=== PATIENT | female | born 1960 | race Caucasian/White ===

== ENCOUNTER 2017-04-22 07:30 | Inpatient (IN) ==
[2017-04-21 11:46] LABS: Basophils # (Auto) 0 K/mcL (0.0-0.3); Basophils % (Auto) 0.6 % (0.0-2.0); Eosinophils # (Auto) 0.2 K/mcL (0.0-0.7); Eosinophils % (Auto) 5.2 % (0.0-7.0); Lymphocytes # (Auto) 1.8 K/mcL (1.5-4.8); Lymphocytes % (Auto) 40.3 % (15.5-49.0); Mean Cell Volume 83.1 fL (80.0-100.0); Mean Corpuscular HGB Conc 34.3 g/dL (31.0-36.0); Mean Corpuscular Hemoglobin 28.5 pg (26.0-34.0); Monocytes # (Auto) 0.3 K/mcL (0.1-0.9); Monocytes % (Auto) 5.9 % (1.0-12.0); Platelet Count 181 K/mcL (140-440); RBC 4.58 M/mcL (4.00-5.20); Red Cell Distribution Width 13.7 % (11.5-14.5)
[2017-04-21 11:59] LABS: Blood Urea Nitrogen 15 mg/dl (6-20)
[2017-04-21 12:07] LABS: Appearance,Urine CLEAR; Bilirubin,Urine NEG (NEG); Color,Urine STRAW; Glucose,Urine (UA) NEGATIVE (NEG); Leukocyte Esterase,Urine NEG /uL (NEG); Nitrate,Urine NEG (NEG); Protein,Urine NEG (NEG); Urine Blood NEG mg/dL (<0.03); Urobilinogen,Urine NEG (NEG)
[~2017-04-22 07:30] MED LIST: CELECOXIB 200 MG CAPSULE PO SCH; PREGABALIN 75 MG CAPSULE PO SCH; oxyCODONE 10 MG TAB.ER.12H PO SCH
[2017-04-22] MEDS ORDERED: KETOROLAC 30 MG, ROPIVACAINE HCL/PF 49.5 ML, EPINEPHrine 0.5 MG, 0.9 % SODIUM CHLORIDE ... IJ ONE (09:00)
[2017-04-22] MEDS ORDERED: VANCOMYCIN 1,500 MG in 0.9 % SODIUM CHLORIDE 500 ML IV SCH (09:00)
[2017-04-22] MEDS ORDERED: SCOPOLAMINE 1 PATCH PATCH TOPICAL ONE (10:18)
[2017-04-22] MEDS ORDERED: PROPOFOL 200 MG/20 ML VIAL IV ONE (11:15)
[2017-04-22] MEDS ORDERED: ONDANSETRON 4 MG/2 ML VIAL IV ONE (11:15)
[2017-04-22] MEDS ORDERED: TRANEXAMIC ACID 1,000 MG/10 ML VIAL IV ONE (11:15)
[2017-04-22] MEDS ORDERED: LIDOCAINE HCL/PF 100 MG/5 ML SYRINGE IV ONE (11:15)
[2017-04-22] MEDS ORDERED: MIDAZOLAM 5 MG/5 ML VIAL IV ONE (11:15)
[2017-04-22] MEDS ORDERED: ROPIVACAINE HCL/PF 20 ML VIAL IJ ONE (11:15)
[2017-04-22] MEDS ORDERED: DEXAMETHASONE 10 MG/ML VIAL IV ONE (11:15)
[2017-04-22] MEDS ORDERED: KETAMINE 100 MG/ML ML IV ONE (11:15)
[2017-04-22] MEDS ORDERED: FLUMAZENIL 0.1 MG/ML ML IV PRN (13:02)
[2017-04-22] MEDS ORDERED: MEPERIDINE 25 MG/ML SYRINGE IV PRN (13:02)
[2017-04-22] MEDS ORDERED: LACTATED RINGERS 250 ML IV PRN (13:02)
[2017-04-22] MEDS ORDERED: BENZOCAINE/MENTHOL 1 LOZENGE PO PRN ×2 (13:02→13:10)
[2017-04-22] MEDS ORDERED: ONDANSETRON 4 MG/2 ML VIAL IV PRN (13:02)
[2017-04-22] MEDS ORDERED: diphenhydrAMINE 50 MG/ML VIAL IV PRN (13:02)
[2017-04-22] MEDS ORDERED: NALOXONE HCL 0.4 MG/ML VIAL IV PRN (13:02)
[2017-04-22] MEDS ORDERED: IPRATROPIUM/ALBUTEROL 3 ML AMPUL.NEB NEB PRN (13:02)
[2017-04-22] MEDS ORDERED: METHOCARBAMOL 1,000 MG/10 ML VIAL IV PRN (13:02)
[2017-04-22] MEDS ORDERED: HYDROmorphone 2 MG/ML SYRINGE IV PRN ×2 (13:02→13:10)
--- NOTE | 2017-04-22 13:09 | Brief Operative Note ---
Date of procedure: 04/22/17 Pre-op diagnosis: Left knee DJD Post-op diagnosis: same Procedure: Left robotic assisted total knee arthroplasty Grafts/Implants: Yes (Harika 3 CR femur, 3 tibia, 11mm insert, 31 patella) Anesthesia: spinal, GLMA Findings: 3 compartment arthritis Complications: none Surgeon: Chuy Johns Linux Server Engineer: Selvin Howell Estimated blood loss (cc): 30 Specimens Removed/Pathology: none sent Condition: stable Disposition: PACU
[2017-04-22] MEDS ORDERED: TRANEXAMIC ACID 1,000 MG/10 ML VIAL IV SCH (13:10)
[2017-04-22] MEDS ORDERED: FLEETS ADULT ENEMA PR PRN (13:10)
[2017-04-22] MEDS ORDERED: BISACODYL 10 MG SUPP.RECT PR PRN (13:10)
[2017-04-22] MEDS ORDERED: MAGNESIUM HYDROXIDE 30 ML ORAL.SUSP PO PRN (13:10)
[2017-04-22] MEDS ORDERED: POLYETHYLENE GLYCOL 3350 17 GM PACKET PO PRN (13:10)
[2017-04-22] MEDS ORDERED: LACTATED RINGERS 1,000 ML IV SCH (13:15)
[2017-04-22] MEDS ORDERED: ceFAZolin 1 GM VIAL IV SCH (13:15)
[2017-04-22] MEDS: fentaNYL 100 MCG/2 ML VIAL IV PRN ×2 (13:40→13:47)
[2017-04-22] MEDS ORDERED: DIAZEPAM 10 MG/2 ML SYRINGE IV PRN (13:54)
[2017-04-22] MEDS ORDERED: DIAZEPAM 10 MG/2 ML SYRINGE ONE (14:04)
--- NOTE | 2017-04-22 14:25 | XRay Report ---
CLINICAL INFORMATION: Postop total knee prostheses COMPARISON: None. FINDINGS: Total knee prostheses is anatomically aligned. There are no osseous abnormalities. Particular gas and soft tissue is seen as expected IMPRESSION: Negative Interpreted and Authenticated by: Alvin Nichole 04/22/17
[2017-04-22] MEDS: 0.9 % SODIUM CHLORIDE 1,000 ML IV SCH (15:22)
[2017-04-22] MEDS: 0.9 % SODIUM CHLORIDE 10 ML SYRINGE IV SCH ×2 (15:24→23:53)
[2017-04-22] MEDS: KETOROLAC 30 MG/ML VIAL IV SCH ×2 (18:11→23:54)
[2017-04-22] MEDS: ONDANSETRON 4 MG/2 ML VIAL IV PRN (18:19)
[2017-04-22] MEDS ORDERED: SENNOSIDES 1 TABLET PO SCH (21:00)
[2017-04-22] MEDS: HYDROcodone/APAP 10/325MG TABLET PO PRN (21:00)
[2017-04-22] MEDS: ASPIRIN 325 MG ENTERIC COATED TABLET PO SCH (21:00)
[2017-04-22] MEDS: DOCUSATE SODIUM 100 MG CAPSULE PO SCH (21:00)
[2017-04-22] MEDS: VANCOMYCIN 1,500 MG in 0.9 % SODIUM CHLORIDE 500 ML IV SCH (21:01)
[2017-04-23] MEDS: HYDROcodone/APAP 10/325MG TABLET PO PRN ×2 (03:00→10:01)
[2017-04-23] MEDS: 0.9 % SODIUM CHLORIDE 1,000 ML IV SCH ×2 (03:37→10:02)
[2017-04-23] MEDS: KETOROLAC 30 MG/ML VIAL IV SCH ×2 (05:52→12:42)
[2017-04-23] MEDS: 0.9 % SODIUM CHLORIDE 10 ML SYRINGE IV SCH ×2 (05:57→13:09)
--- NOTE | 2017-04-23 07:42 | Discharge Summary ---
Providers - Providers Patient information: Note initiated : 04/23/17 at 7:40 am Service Date, if different from initiated Date: [] Patient: Britta Stallworth 57 y/o F admitted on 04/22/17 for Left Total Knee Arthroplasty with Robotic Assist. Chief Complaint: [] Discharge date: 04/23/17 Hospitalization Hospital course: Pt was admitted for a TKA. She underwent the procedure on the day of admission. She was transfered to the floor for IV pain meds, IV abx, and PT. She was discharged on post-op day #1. Give ASA for DVT prophylaxis, appropriate pain meds, and PT rx. Discharge diagnosis: L knee osetoarthrosis Exam - Exam Clean and dry: Yes Weight bearing status: as tolerated Ortho Discharge - TKA - Patient Instructions Diet: Regular Diet Activity: activity as tolerated Total Knee Protocol: For Total Knee: Start ROM VERITO with stationary bike or rocking chair. Work on gaining full extension of knee. Posterior dislocation precautions provided. Hip abductor strengthening and gait training instructions provided. Apply Cryocuff as instructed. Dressing Care: May shower in 2 days Patient Education: Aspirin/Codeine (By mouth), Hydrocodone/Acetaminophen (By mouth), Total Knee Replacement (DC) Additional Instructions: Discharge Instructions: Resume home diet as tolerated Follow up with [facility] on 04/28 at 9:00 am Do the exercises at home that physical therapy gave you. [facility] [phone] APPOINTMENT: April 28 at 9: 00am.Your orders will be faxed to them. Take your photo ID, insurance cards, and current medication list with you to your first physical therapy appointment. Take your prescription to product picker any medication or equipment (such as walker, crutches, toilet riser or C.P.M.) Wear comfortable clothing for your physical therapy. Weight bearing as tolerated. If you have the Aquacel Ag dressing, leave in place for 7 days then remove. If dressing becomes soiled (turns black), remove and use gauze 4x4 dressing and silvasorb ointment and change daily. Keep incision clean and dry. To avoid constipation while taking any narcotic pain medication, take an over the counter stool softener/laxative. Use your Cryocuff or ice packs as directed, on for 20 minutes at a time throughout the day. This and elevation will help with pain and swelling. Your prescriptions are with your discharge information. Take Aspirin twice daily as ordered by your doctor to prevent blood clots. Do not drive while taking pain medications. - Follow Up Plan Follow Up Appointments: Chuy Johns MD [Physician] - 05/04/17 1:40 pm Disposition: Home, Self-Care Prognosis: Good Rehab Potential: Good Overall status at discharge: patient is progressing back to baseline - Orders For Discharge Prescriptions: Aspirin [Aspirin EC] 325 mg PO BID #14 tablet. HYDROcodone/APAP 10/325MG [Railroad 10/325Mg] 1 - 2 tab PO Q4-6HP PRN #100 tablet PRN Reason: Pain Additional Discharge Orders: Physical Therapy at Discharge - TKA Location: Determined By Patient Walker Location: Determined By Patient Pending Studies Resuscitation Status Full Code Diet Consistent Carbohydrate Diet Start ThuApr 22 Dinner Hydrocodone Bitart/Acetaminophen (Railroad 10/325mg) 0 tab PO Q4HP PRN PRN Reason: Pain Last Admin: 04/23/17 03:00 Dose: 2 tab Admin: 04/22/17 21:00 Dose: 1 tab Aspirin (Ecotrin) 325 mg PO BID [facility] Last Admin: 04/22/17 21:00 Dose: 325 mg Docusate Sodium (Colace) 100 mg PO BID [facility] Last Admin: 04/22/17 21:00 Dose: 100 mg Hydromorphone HCl (Dilaudid) 0 mg IV Q2HP PRN PRN Reason: Pain Last Admin: 04/22/17 15:23 Dose: 0.5 mg Sodium Chloride (Sodium Chloride 0.9%) 1,000 mls @ 100 mls/hr IV .Q10H [facility] Last Admin: 04/23/17 03:37 Dose: Not Given Infusion: 04/23/17 03:37 Dose: 100 mls/hr Admin: 04/22/17 15:22 Dose: 100 mls/hr Vancomycin HCl 1,500 mg/ (Sodium Chloride) 500 mls @ 333.3 mls/hr IV Q12H [facility] Stop: 04/23/17 10:31 Last Admin: 04/22/17 21:01 Dose: 333.3 mls/hr Ketorolac Tromethamine (Toradol) 30 mg IV Q6 [facility] Stop: 04/24/17 12:01 Last Admin: 04/23/17 05:52 Dose: 30 mg Admin: 04/22/17 23:54 Dose: Not Given Admin: 04/22/17 18:11 Dose: 30 mg Ondansetron HCl (Zofran) 4 mg IV Q4HP PRN PRN Reason: Nausea And Vomiting Last Admin: 04/22/17 18:19 Dose: 4 mg Senna (Senokot) 2 tab PO HS CB Last Admin: 04/22/17 21:00 Dose: 2 tab Sodium Chloride (Saline Flush) 10 ml IV Q8 CB Last Admin: 04/23/17 05:57 Dose: 10 ml Admin: 04/22/17 23:53 Dose: Not Given Admin: 04/22/17 15:24 Dose: Not Given Shift Summary 04/23/17 04:18 Shift Summary by Nahed Dorado Patient up with SBA and FWW, voiding adequate amts. SL IV to LFA this AM. Ambulated in hallway, doing well. Medicated with 2Norco 10s @0300. Scope patch in place, no new c/o nausea tonight. VSS on RA. Initialized on 04/23/17 04:18 - END OF NOTE
[2017-04-23] MEDS ORDERED: MULTIVIT,THER IRON,CA,FA & MIN 1 TABLET PO SCH (09:00)
[2017-04-23] MEDS: DOCUSATE SODIUM 100 MG CAPSULE PO SCH (10:02)
[2017-04-23] MEDS: VANCOMYCIN 1,500 MG in 0.9 % SODIUM CHLORIDE 500 ML IV SCH (10:02)
[2017-04-23] MEDS: ASPIRIN 325 MG ENTERIC COATED TABLET PO SCH (10:02)
[2017-04-23] MEDS: ONDANSETRON 4 MG/2 ML VIAL IV PRN (10:18)
--- NOTE | 2017-04-27 09:48 | Operative Note ---
DATE OF OPERATION: 04/22/2017 PREOPERATIVE DIAGNOSIS: Left knee severe osteoarthritis. POSTOPERATIVE DIAGNOSIS: Left knee severe osteoarthritis. PROCEDURE PERFORMED: Left robotic-assisted total knee arthroplasty using the Harika triathlon size 3 cruciate retaining femoral component, size 3 tibial baseplate, and an 11 mm X3 tibial insert with a 31 mm patellar button. SURGEON: Chuy Johns MD. HOT DIE PICKER: Evan Howell PA-C. ANESTHESIA: Spinal plus general. DRAINS: None. SPECIMENS: Bone cuts, which were discarded. BLOOD LOSS: 30 mL. POSTOPERATIVE CONDITION: Stable. INDICATIONS FOR SURGERY: This is a 57-year-old female who has had worsening severe left knee pain. Radiographs showed advanced joint space narrowing with osteophytes. FINDINGS AT SURGERY: She did have full-thickness cartilage defect off of all three compartments post-implant. She did also have fairly severe hyperextension preoperatively about 10 degrees. Post-procedure showed good limb alignment with about 1 or 2 degrees of hyperextension. PROCEDURE IN DETAIL: The patient had been seen preoperatively. Informed consent had been obtained after discussion of risks and benefits of surgery. Risks including, but not limited to, bleeding, possibly requiring transfusion; infection, possibly requiring implant removal and prolonged IV antibiotics; injury to nerves, blood vessels or other surrounding structures; anesthetic risks; incomplete or no resolution of symptoms; stiffness; pain; instability; swelling; DVT and pulmonary embolus risks; the possibility of needing revision surgery. She understood these risks and wished to proceed. Correct operative site was marked in preoperative holding and then patient received spinal anesthesia. She was then taken to the operating room and LMA general given. The left lower extremity was carefully prepped and draped in normal sterile fashion, and a time-out was performed verifying patient name, operative site, and plan. Esmarch was used to exsanguinate the extremity and tourniquet was inflated to 300 mmHg. A midline incision was made with a scalpel through skin and subcutaneous tissue. Hemostasis was obtained with Bovie cautery. Irrisept was irrigated and then a medial parapatellar arthrotomy made. Subperiosteal exposure was done of the anterior medial tibia, and we released the deep fibers of the MCL around the corner of the medial tibial plateau. We then placed our two femoral and two tibial pins after making stab incisions. We then hooked up the arrays, as well as placed our femoral and tibial checkpoints. Hip center of rotation was checked, as well as the green probe used to identify the medial and lateral malleolus. We then double checked our checkpoints with the green probe. We then used the blue probe to do our registration data points. Once this was completed, we removed osteophytes off the medial tibia and femoral condyle. ACL was transected. Anterior horns of the menisci were removed. We then checked our flexion and extension gaps. She was tight medially and loose laterally. We placed the tibia in 2 degrees of varus, as well as some varus was added on to the femur. This gave us approximately 17 mm of flexion-extension gaps medially and with flexion the lateral gap was 17. With extension the lateral gap was a little bit larger, but we did not feel further varus was indicated, so we went ahead and then verified the robot and then made our femoral and tibial cut using the robotic assistance. Once this was completed, the tibia was subluxed forward and posterior horn of the menisci was removed. We used the green probe to negar our tibial external rotation, making Bovie hernadez, and then we chose a size 3 tibial baseplate due to the small lateral tibial plateau. This was lateralized and externally rotated as bone coverage would allow and then pinned into place. A boss reamer and keel punch were used to prepare the tibia. We then elevated the femur and removed posterior osteophytes with a curved osteotome and curet. We then placed the femoral trial, pinned this into place and drilled our peg holes. A 9 insert was placed and then the knee was taken into extension. Unfortunately, there was still significant 8 to 10 degrees of hyperextension. We did go ahead and trial an 11 insert. This was very snug but it did take a lot of the hyperextension out. We went ahead and prepared the patella. Pre-resection showed a patellar thickness of 20 mm. Post-resection showed 12 mm. We went ahead and sized this to a 31 which was medialized maximally. Holes were drilled and then trial placed. A very limited lateral facetectomy was performed. We checked our patellar tracking and it wanted to tilt and sublux laterally, so we went ahead and performed a lateral release with the Bovie, starting at the level of the superior pole of patella at about 1 cm lateral and releasing down to the tibia. This did improve our patellar tracking. We went ahead and removed the trial insert. Definitive implants were opened. We irrigated the joint with Irrisept. After waiting a minute, we pulse lavaged with saline. Antibiotic impregnated Palacos was mixed. We used the CO2 gun to remove liquid from the cancellous surfaces and then cemented the tibia followed by the femur. We were unable to get the 11 insert in quickly so we just went to the 9 insert and took the knee into extension. Excess cement was removed. We then cemented the patellar button. While cement was hardening, we filled the joint with Irrisept again and then injected pain cocktail into the pericapsular and subcutaneous tissues. After cement had fully hardened, we flexed the knee up and did inspection and removed any remaining cement. We removed the tibial trial and injected the posterior capsule with pain cocktail. We then trialed with an 11 insert. We were able to get it in so we went ahead and opened an 11 insert. This was snapped into place after irrigating with Irrisept. We then pulse lavaged copiously with saline. The knee was placed in 45 degrees of flexion. Check points were removed. A #2 FiberWire interrupted [id number] was used around the superior quadrant of the patella. A #1 Vicryl was used [id number] around the inferior quadrant. Running #1 Vicryl was used for patellar tendon and quad tendon repairs. Final Irrisept irrigation was done and then after a minute pulse lavage. A #2-0 Monocryl was used for subcutaneous and fred for skin. The pins were removed and fred used to close the pin sites. After the sterile dressing was applied, the tourniquet was released, and patient was awakened. Pulses were checked and verified to be palpable. She was then transferred to recovery in stable condition. CHRISTIANA:cassie Job ID: [id number] Doc ID: [id number] Chuy Johns MD
== END 2017-04-23 13:51 | disposition home or self-care (01) | DRG 470 ==
LOC: MEDSUR 09:05
PROVIDERS: ADMIT Orthopaedic Surgery; ATTEND Orthopaedic Surgery

== ENCOUNTER 2018-02-10 07:02 | Inpatient (IN) ==
[2018-02-09 17:32] LABS: Appearance,Urine CLEAR; Bilirubin,Urine NEG (NEG); Color,Urine YELLOW; Glucose,Urine (UA) NEGATIVE (NEG); Leukocyte Esterase,Urine NEG /uL (NEG); Protein,Urine NEG (NEG); Specific Gravity,Urine 1.017 (1.000-1.035); Urine Blood NEG mg/dL (<0.03); Urobilinogen,Urine NEG (NEG)
[2018-02-09 18:12] LABS: Blood Urea Nitrogen 18 mg/dl (6-20)
[2018-02-09 18:23] LABS: Basophils # (Auto) 0 K/mcL (0.0-0.3); Basophils % (Auto) 0.6 % (0.0-2.0); Eosinophils # (Auto) 0.1 K/mcL (0.0-0.7); Eosinophils % (Auto) 2.8 % (0.0-7.0); Granulocytes % (Auto) 50.9 % (38.0-78.0); Lymphocytes # (Auto) 2.1 K/mcL (1.5-4.8); Lymphocytes % (Auto) 39.7 % (15.5-49.0); Mean Corpuscular HGB Conc 33.2 g/dL (31.0-36.0); Mean Corpuscular Hemoglobin 27.6 pg (26.0-34.0); Monocytes # (Auto) 0.3 K/mcL (0.1-0.9); Platelet Count 185 K/mcL (140-440); RBC 4.73 M/mcL (4.00-5.20); Red Cell Distribution Width 14.7 % (11.5-14.5)
[~2018-02-10 07:02] MED LIST changes: +SCOPOLAMINE 1 PATCH PATCH TOPICAL ONE
[2018-02-10] MEDS ORDERED: VANCOMYCIN 1,500 MG in 0.9 % SODIUM CHLORIDE 500 ML IV SCH (08:00)
[2018-02-10] MEDS ORDERED: KETOROLAC 30 MG, ROPIVACAINE HCL/PF 49.5 ML, EPINEPHrine 0.5 MG, 0.9 % SODIUM CHLORIDE ... IJ SCH (08:00)
[2018-02-10] MEDS ORDERED: LIDOCAINE HCL/PF 100 MG/5 ML SYRINGE IV ONE (09:30)
[2018-02-10] MEDS ORDERED: KETAMINE 100 MG/ML ML IV ONE (09:30)
[2018-02-10] MEDS ORDERED: ROPIVACAINE HCL/PF 30 ML VIAL IJ ONE (09:30)
[2018-02-10] MEDS ORDERED: PROPOFOL 200 MG/20 ML VIAL IV ONE (09:30)
[2018-02-10] MEDS ORDERED: TRANEXAMIC ACID 1,000 MG/10 ML VIAL IV ONE ×2 (09:30→11:01)
[2018-02-10] MEDS ORDERED: ONDANSETRON 4 MG/2 ML VIAL IV ONE (09:30)
[2018-02-10] MEDS ORDERED: fentaNYL 100 MCG/2 ML VIAL IV ONE (09:30)
[2018-02-10] MEDS ORDERED: MIDAZOLAM 2 MG/2 ML VIAL IV ONE (09:30)
[2018-02-10] MEDS ORDERED: GLYCOPYRROLATE 0.2 MG/ML VIAL IV ONE (09:30)
[2018-02-10] MEDS ORDERED: METOPROLOL TARTRATE 5 MG/5 ML VIAL IV PRN (10:33)
[2018-02-10] MEDS ORDERED: PROMETHAZINE 25 MG/ML VIAL IV PRN (10:33)
[2018-02-10] MEDS ORDERED: METHOCARBAMOL 1,000 MG/10 ML VIAL IV PRN (10:33)
[2018-02-10] MEDS ORDERED: IPRATROPIUM/ALBUTEROL 3 ML AMPUL.NEB NEB PRN (10:33)
[2018-02-10] MEDS ORDERED: ACETAMINOPHEN 1,000 MG/100 ML BOTTLE IV ONE (10:33)
[2018-02-10] MEDS ORDERED: MEPERIDINE 25 MG/ML SYRINGE IV PRN (10:33)
[2018-02-10] MEDS ORDERED: LACTATED RINGERS 1,000 ML IV SCH (10:45)
[2018-02-10] MEDS ORDERED: MAGNESIUM HYDROXIDE 30 ML ORAL.SUSP PO PRN (11:01)
[2018-02-10] MEDS ORDERED: DEXTROSE 50% 50 ML VIAL IV PRN (11:01)
[2018-02-10] MEDS ORDERED: FLEETS ADULT ENEMA PR PRN (11:01)
[2018-02-10] MEDS ORDERED: BENZOCAINE/MENTHOL 1 LOZENGE PO PRN (11:01)
[2018-02-10] MEDS ORDERED: DEXTROSE 31 GM ORAL.SUSP PO PRN (11:01)
[2018-02-10] MEDS ORDERED: POLYETHYLENE GLYCOL 3350 17 GM PACKET PO PRN (11:01)
[2018-02-10] MEDS ORDERED: BISACODYL 10 MG SUPP.RECT PR PRN (11:01)
[2018-02-10] MEDS ORDERED: HYDROmorphone 2 MG/ML VIAL IV PRN (11:01)
--- NOTE | 2018-02-10 11:01 | Brief Operative Note ---
Date of procedure: 02/10/18 Pre-op diagnosis: R knee severe DJD Post-op diagnosis: same Procedure: Right robotic assisted total knee arthroplasty Grafts/Implants: Yes (Harika Triathlon CR 4 femur, 4 tibia, 9 insert, 33 patella) Anesthesia: spinal, GLMA Findings: severe arthrosis Complications: none Surgeon: Chuy Johns District [employer] Service Agent: Selvin Howell Estimated blood loss (cc): 30 Specimens Removed/Pathology: none sent Condition: stable Disposition: PACU
[2018-02-10] MEDS ORDERED: INSULIN LISPRO 1 UNIT/0.01 ML UNIT SQ SCH (11:30)
[2018-02-10] MEDS: fentaNYL 100 MCG/2 ML VIAL IV PRN ×3 (11:35→12:01)
--- NOTE | 2018-02-10 11:50 | XRay Report ---
CLINICAL INFORMATION: Postsurgical follow-up TECHNIQUE: AP, lateral, patellar views COMPARISON: None. FINDINGS: Status post right total knee arthroplasty. Femoral and tibial components are in anatomic positions. There is postsurgical soft tissue and intra-articular gas. There are skin fred anteriorly IMPRESSION: Status post right total knee arthroplasty Interpreted and Authenticated by: Alvin Casper 02/10/18
[2018-02-10] MEDS: 0.9 % SODIUM CHLORIDE 1,000 ML IV SCH ×2 (12:33→22:35)
--- NOTE | 2018-02-10 12:46 | Operative Note ---
DATE OF OPERATION: 02/10/2018 PREOPERATIVE DIAGNOSIS: Right knee severe osteoarthritis. POSTOPERATIVE DIAGNOSIS: Right knee severe osteoarthritis. PROCEDURE PERFORMED: Right robotic-assisted total knee arthroplasty placing a Harika Triathlon size 4 cruciate retaining femoral component, size 4 tibial baseplate, a 9 mm X3 tibial insert with a 33 mm patellar button. SURGEON: Chuy Johns MD CHARTER REPRESENTATIVE: Evan Howell PA-C ANESTHESIA: Spinal plus general. DRAINS: None. SPECIMENS: Bone cuts, which were discarded. BLOOD LOSS: 20 mL COMPLICATIONS: None. POSTOPERATIVE CONDITION: Stable. INDICATIONS FOR SURGERY: This is a 58-year-old female who has had longstanding progressive worsening right knee pain. Radiographs showed advanced multi-compartment osteoarthritis. FINDINGS AT SURGERY: She had severe multi-compartment osteoarthritis. Post implantation showed good limb alignment, stability, and patellar tracking. PROCEDURE IN DETAIL: The patient had been seen preoperatively. Informed consent had been obtained after discussion of risks and benefits of surgery. Risks including, but not limited to, bleeding, possibly requiring transfusion; infection, possibly requiring implant removal and prolonged IV antibiotics; injury to nerves, blood vessels other surrounding structures; anesthetic risks; incomplete or no resolution of symptoms; stiffness, pain, swelling, instability; DVT and pulmonary embolus risks; and the possibility of needing further revision surgery. She understood these risks and wished to proceed. Correct operative site was marked. The patient was given spinal anesthesia. She was then taken to the operating room and LMA general given. The right lower extremity was then carefully prepped and draped in normal sterile fashion. A timeout was performed verifying patient name, operative site, and plan. Esmarch was used to exsanguinate the extremity and tourniquet was inflated. A midline incision was made with scalpel through skin and subcutaneous tissue. IrriSept was irrigated. A medial parapatellar arthrotomy was made. Subperiosteal exposure was done of the anterior medial tibia. ACL was transected and the anterior horn of the menisci removed. We placed our femoral and tibial check points. We made two stab incisions over the femur and two over the tibia and placed bicortical pins and connected the arrays. We then checked our hip center of rotation, green probe to the medial and lateral malleolus as well as double checks of the checkpoint. We then used the blue probe to do our mapping. Once this was completed, we used the spoons to check our flexion, extension gaps. We chose a size 4, which appeared to fit her best and adjusted implants so we had 17 mm gaps medial and lateral for all 4 compartments. We then used the robotic arm to make our bone cuts. Tibia was prepared with boss reamer and keel punch, externally rotating as bone coverage would allow. We then placed our trial implants. The knee was taken into extension. Patella was measured pre-resection of 20. We resected 9 mm freehand and then a 33 mm patellar button was sized, drilled for and a trial placed. She did tend to want to track lateral and tilt, so we did do a lateral retinacular release with a Bovie starting at the superior pole approximately 1 cm lateral and extending this down to the tibia. This allowed the patella to track much better. We then checked our extension. We were about 4 degrees short of full extension, so we went ahead and removed trial implants. Definitive implants were opened. Antibiotic cement was mixed while we irrigated the joint with IrriSept. After a minute we pulse lavaged with saline. We cemented the tibia followed by the femur. Excess cement was removed and the 9 insert trial was placed. The knee was taken into extension and the patellar button was cemented. The knee was held in full extension while cement hardened. We irrigated with IrriSept and after a minute pulse lavaged. A pain cocktail was then injected. We flexed the knee up, removed the trial insert. Posterior capsule was injected with pain cocktail and then IrriSept irrigated and then tibial insert was impacted. The checkpoints were removed, as well as the pins for the arrays. We then placed the knee in about 45 degrees of flexion. Interrupted #2 FiberWire [id number] were used around the superior quadrant of the patella, #1 Vicryl [id number] around the inferior quadrant, running #1 Vicryl for patellar and quad tendon. Final IrriSept irrigation was done and after a minute final pulse lavage, 2-0 Monocryl was used for subcutaneous and fred for skin. Xeroform sterile dressings were applied. Tourniquet was released. The patient was awakened, extubated, and transferred to recovery in stable condition. CHRISTIANA:lupillo Job ID: [id number] Doc ID: [id number] Chuy Johns MD
[2018-02-10] MEDS: KETOROLAC 30 MG/ML VIAL IV SCH ×2 (13:05→17:52)
[2018-02-10] MEDS: 0.9 % SODIUM CHLORIDE 10 ML SYRINGE IV SCH ×2 (14:23→22:36)
[2018-02-10] MEDS: oxyCODONE/APAP 5/325MG TABLET PO PRN ×2 (15:55→20:53)
[2018-02-10] MEDS: ceFAZolin 1 GM VIAL IV SCH (17:51)
[2018-02-10] MEDS: SENNOSIDES 1 TABLET PO SCH (20:53)
[2018-02-10] MEDS: ASPIRIN 325 MG ENTERIC COATED TABLET PO SCH (20:53)
[2018-02-10] MEDS: DOCUSATE SODIUM 100 MG CAPSULE PO SCH (20:53)
[2018-02-11] MEDS: KETOROLAC 30 MG/ML VIAL IV SCH ×5 (00:36→23:21)
[2018-02-11] MEDS: oxyCODONE/APAP 5/325MG TABLET PO PRN ×6 (01:35→23:25)
[2018-02-11] MEDS: ceFAZolin 1 GM VIAL IV SCH (01:35)
[2018-02-11] MEDS: 0.9 % SODIUM CHLORIDE 10 ML SYRINGE IV SCH ×3 (05:43→21:05)
--- NOTE | 2018-02-11 08:09 | Orthopedic Progress Note ---
Orthopedics - Auxillary Note - Subjective Patient Information: Note initiated : 02/11/18 at 8:08 am Service Date, if different from initiated Date: [] Patient: Britta Orozco 58 y/o F admitted on 02/10/18 for Right Robotic Total Knee Arthroplasty. Chief Complaint: Moderate pain bandages c/d/i nvi-distal Vital Signs Temp Pulse Resp BP Pulse Ox 02/11/18 07:42 97.8 F 65 18 129/72 94 02/11/18 04:00 97.4 F 66 18 139/82 95 02/11/18 00:00 98.2 F 63 18 144/85 96 02/10/18 20:00 97.9 F 65 18 132/80 97 02/10/18 15:00 66 124/79 92 02/10/18 14:46 65 116/67 98 02/10/18 14:15 68 132/80 95 02/10/18 14:00 66 125/80 92 02/10/18 13:45 64 124/79 94 02/10/18 13:30 69 128/81 92 02/10/18 13:15 63 135/85 94 02/10/18 13:00 64 129/82 97 02/10/18 12:45 71 132/84 96 02/10/18 12:30 68 132/83 97 02/10/18 12:15 90 138/88 97 02/10/18 12:09 97.2 F 79 12 146/70 98 02/10/18 11:52 80 13 146/77 97 02/10/18 11:38 80 15 136/65 97 02/10/18 11:23 98.5 F 111 H 18 148/93 97 Intake and Output 02/10/18 02/11/18 02/11/18 21:59 05:59 13:59 Intake Total 818 / 818 1325 / 1325 Output Total 1301 / 1301 400 / 400 Balance -483 / -483 925 / 925 Intake: IV 1000 / 1000 Sodium Chloride 0.9% 1,000 ml @ 1000 / 1000 100 mls/hr IV .Q10H CB Rx#: [id number] Oral 818 / 818 325 / 325 Output: Urine Catheter Amount 500 / 500 Void Amount 800 / 800 400 / 400 # of times incontinent of urine Other: # Voids 1 Weight 254 lb s/p R TKA-stable mobilize with PT
[2018-02-11] MEDS: 0.9 % SODIUM CHLORIDE 1,000 ML IV SCH ×2 (10:27→16:31)
[2018-02-11] MEDS: ASPIRIN 325 MG ENTERIC COATED TABLET PO SCH ×2 (10:27→21:05)
[2018-02-11] MEDS: DOCUSATE SODIUM 100 MG CAPSULE PO SCH ×2 (10:27→21:04)
[2018-02-11] MEDS: MULTIVIT,THER IRON,CA,FA & MIN 1 TABLET PO SCH (10:27)
[2018-02-11] MEDS: ONDANSETRON 4 MG/2 ML VIAL IV PRN ×2 (12:40→17:01)
[2018-02-11] MEDS: SUMAtriptan SUCCINATE 50 MG TABLET PO PRN (18:24)
[2018-02-11] MEDS: SENNOSIDES 1 TABLET PO SCH (21:05)
[2018-02-12] MEDS: 0.9 % SODIUM CHLORIDE 1,000 ML IV SCH (02:01)
[2018-02-12] MEDS: oxyCODONE/APAP 5/325MG TABLET PO PRN ×3 (03:43→11:29)
[2018-02-12] MEDS: KETOROLAC 30 MG/ML VIAL IV SCH (05:32)
[2018-02-12] MEDS: 0.9 % SODIUM CHLORIDE 10 ML SYRINGE IV SCH (05:32)
[2018-02-12] MEDS: ONDANSETRON 4 MG/2 ML VIAL IV PRN ×2 (08:03→11:30)
--- NOTE | 2018-02-12 08:31 | Discharge Summary ---
Providers - Providers Patient information: Note initiated : 02/12/18 at 8:29 am Service Date, if different from initiated Date: [] Patient: Britta Orozco 58 y/o F admitted on 02/10/18 for Right Robotic Total Knee Arthroplasty. Chief Complaint: [] Date of admission: 02/10/18 Discharge date: 02/12/18 Attending physician: Chuy Johns Hospitalization Hospital course: Pt struggled with headache, nausea, and pain. POD#2 patient felt pain was tolerable and ready to discharge. Discharge diagnosis: s/p R total knee arthroplasty Reason for admission: R knee pain Procedures: R total knee arthroplasty Ortho Discharge - TKA - Patient Instructions Diet: Consistent Carbohydrate Activity: weight bearing as tolerated Total Knee Protocol: For Total Knee: Start ROM VERITO with stationary bike or rocking chair. Work on gaining full extension of knee. Posterior dislocation precautions provided. Hip abductor strengthening and gait training instructions provided. Apply Cryocuff as instructed. Dressing Care: Aquacel Ag - leave on for 5 days - Follow Up Plan Follow Up Appointments: Selvin Howell PA-C [Physician Pre Sales Network Engineer] - Disposition: Home, Self-Care Prognosis: Good Rehab Potential: Good - Orders For Discharge Prescriptions: Aspirin [Ecotrin] 325 mg PO BID #28 tab.ec oxyCODONE/APAP [Percocet 5-325 mg] 1 - 2 tab PO Q4H PRN #120 tablet PRN Reason: Pain Additional Discharge Orders: Physical Therapy at Discharge - TKA Location: Determined By Patient Pending Studies Resuscitation Status Full Code Diet Consistent Carbohydrate Diet Start ThuFebruary 10 1104 Aspirin (Ecotrin) 325 mg PO BID [facility] Last Admin: 02/11/18 21:05 Dose: 325 mg Admin: 02/11/18 10:27 Dose: 325 mg Admin: 02/10/18 20:53 Dose: 325 mg Docusate Sodium (Colace) 100 mg PO BID [facility] Last Admin: 02/11/18 21:04 Dose: 100 mg Admin: 02/11/18 10:27 Dose: 100 mg Admin: 02/10/18 20:53 Dose: 100 mg Sodium Chloride (Sodium Chloride 0.9%) 1,000 mls @ 100 mls/hr IV .Q10H [facility] Last Admin: 02/12/18 02:01 Dose: Admin: 02/11/18 16:31 Dose: Admin: 02/11/18 10:27 Dose: Admin: 02/10/18 22:35 Dose: 100 mls/hr Infusion: 02/10/18 22:33 Dose: 100 mls/hr Admin: 02/10/18 12:33 Dose: 100 mls/hr Iron Carb/Multivit/Environmental Engineering Manager/Folic Acid (Multivitamin W/Minerals) 1 tab PO DAILY CB Last Admin: 02/11/18 10:27 Dose: 1 tab Morphine Sulfate (Morphine) 2 - 4 mg IV Q2HP PRN PRN Reason: PAIN LEVEL > 6 Last Admin: 02/11/18 08:55 Dose: 4 mg Admin: 02/11/18 04:54 Dose: 4 mg Admin: 02/11/18 00:35 Dose: 2 mg Admin: 02/10/18 23:27 Dose: 2 mg Ondansetron HCl (Zofran) 4 mg IV Q4HP PRN PRN Reason: Nausea And Vomiting Last Admin: 02/12/18 08:03 Dose: 4 mg Admin: 02/11/18 17:01 Dose: 4 mg Admin: 02/11/18 12:40 Dose: 4 mg Oxycodone/Acetaminophen (Percocet 5-325 Mg) 0 tab PO Q4HP PRN PRN Reason: PAIN LEVEL 3-6 Last Admin: 02/12/18 07:18 Dose: 2 tab Admin: 02/12/18 03:43 Dose: 2 tab Admin: 02/11/18 23:25 Dose: 2 tab Admin: 02/11/18 19:27 Dose: 2 tab Admin: 02/11/18 15:33 Dose: 2 tab Admin: 02/11/18 10:27 Dose: 2 tab Admin: 02/11/18 05:42 Dose: 2 tab Admin: 02/11/18 01:35 Dose: 2 tab Admin: 02/10/18 20:53 Dose: 2 tab Admin: 02/10/18 15:55 Dose: 2 tab Senna (Senokot) 2 tab PO HS CB Last Admin: 02/11/18 21:05 Dose: 2 tab Admin: 02/10/18 20:53 Dose: 2 tab Sodium Chloride (Saline Flush) 10 ml IV Q8 CB Last Admin: 02/12/18 05:32 Dose: 10 ml Admin: 02/11/18 21:05 Dose: 10 ml Admin: 02/11/18 12:08 Dose: 10 ml Admin: 02/11/18 05:43 Dose: Not Given Admin: 02/10/18 22:36 Dose: Not Given Admin: 02/10/18 14:23 Dose: Not Given Sumatriptan Succinate (Imitrex) 50 mg PO TIDP PRN PRN Reason: Migraine Headache Last Admin: 02/11/18 18:24 Dose: 50 mg Shift Summary 02/12/18 04:12 Shift Summary by Jack Winn on RA. CPAP @ night. HIRAM wrap to right knee CDI. No complaints of numbness or tingling. Pt has difficulty moving RLE, requires assistance w/lifting and repositioning leg when getting oob. Ambulates w/FWW and SBA to BR. Steady on feet. Continuously rates pain 7-8/10. Receiving 2 tabs Percocet ~q4h. Receiving last dose of scheduled Toradol @ 0600. Uses cryocuff w/decent pain relief. IS up to 2,250. Complained of mild nausea at beginning of shift, did not require any medications. IV to RAC SL. Cooperative w/cares. Possible discharge today. Initialized on 02/12/18 04:12 - END OF NOTE
[2018-02-12] MEDS: ASPIRIN 325 MG ENTERIC COATED TABLET PO SCH (09:01)
[2018-02-12] MEDS: MULTIVIT,THER IRON,CA,FA & MIN 1 TABLET PO SCH (09:02)
[2018-02-12] MEDS: DOCUSATE SODIUM 100 MG CAPSULE PO SCH (09:02)
[2018-02-12] MEDS: SUMAtriptan SUCCINATE 50 MG TABLET PO PRN (09:17)
== END 2018-02-12 11:55 | disposition home or self-care (01) | DRG 470 ==
LOC: MEDSUR 07:02
PROVIDERS: ADMIT Orthopaedic Surgery; ATTEND Orthopaedic Surgery